=== PATIENT | female | born 2000 | race Caucasian/White ===

== ENCOUNTER 2025-09-02 06:16 | Day surgery (SDC) | payer BC, SELFPAY | END 2025-09-02 14:29 | disposition home or self-care (01) | LOC: GI 06:16 | PROVIDERS: ATTENDING PHYSICIAN Internal Medicine Gastroenterology; FAMILY PHYSICIAN Physician Assistant Medical | DX: K90.0 Celiac disease (principal); K31.89 Other diseases of stomach and duodenum; R10.13 Epigastric pain; R76.89 Other specified abnormal immunological findings in serum | CPT/HCPCS: 43239; 88305; 88342 ==